=== PATIENT | male | born 1980 | race Caucasian/White ===

== ENCOUNTER 2019-09-27 11:29 | Emergency (ER) | payer SELFPAY ==
[~2019-09-27] VITALS: Ht 160 cm; Wt 90.7 kg
[2019-09-27 11:47] VITALS: BP_SYST 124
--- NOTE | 2019-09-27 12:08 | NUR ---
Patient to ER bed 07 to gown for evaluation. Side rails up.
--- NOTE | 2019-09-27 12:09 | NUR ---
Patient arrived via POV, AAOx4, and ambulatory with steady gait. Stated c/c of cough, congestion, nose bleed, and body aches. Patient having a non productive dry cough at this time. Congestion noted to bilateral cheek bones. Afebrile at time of triage. No nosebleed noted for today. Will continue to follow up and monitor.
--- NOTE | 2019-09-27 12:11 | NUR ---
ER at bedside examining patient.
--- NOTE | 2019-09-27 12:57 | NUR ---
Spoke with lab, critical value called. Patient positive for Influenza B. MD Sun made aware.
--- NOTE | 2019-09-27 13:38 | NUR ---
Dr Sun at bedside explaining results to patient
[2019-09-27 13:55] VITALS: BP_SYST 122
--- NOTE | 2019-09-27 13:55 | NUR ---
Patient given written and verbal discharge instructions and verbalizes understanding. ER MD discussed with patient the results and treatment provided. Patient in stable condition. ID arm band removed. Rx of Robitussin, Tylenol, Keflex ,Sudafed given. Patient educated on pain management and to follow up with PMD. Pain Scale 2/10 tolerable for pt . Opportunity for questions provided and answered. Medication side effect fact sheet provided.
== END 2019-09-27 13:55 | disposition home or self-care (01) ==
LOC: SED 11:29
DX: J10.1 Influenza due to other identified influenza virus with other respiratory manifestations (principal); J32.9 Chronic sinusitis, unspecified
CPT/HCPCS: 36415; 86710; 99283

== ENCOUNTER 2021-06-22 06:33 | Emergency (ER) | payer MEDICAID, SELFPAY ==
[~2021-06-22] VITALS: Ht 160 cm; Wt 90.7 kg
[2021-06-22 06:45] VITALS: BP_SYST 118
--- NOTE | 2021-06-22 06:45 | NUR ---
Patient to ER TENT 2 to gown for evaluation. Side rails up.
--- NOTE | 2021-06-22 06:55 | NUR ---
PATIENT AAOX4 AND AMBULATORY FROM HOME C/O FLU LIKE SYMPTOMS OF COUGH, RUNNY NOSE X1 DAY. PER PATIENT HAD FEVER OF 101 YESTERDAY @9PM. VSS.
--- NOTE | 2021-06-22 07:00 | NUR ---
DR. GRIFFITH AT BEDSIDE FOR EVALUATION.
[2021-06-22 07:15] VITALS: BP_SYST 121
--- NOTE | 2021-06-22 07:15 | NUR ---
Patient given written and verbal discharge instructions and verbalizes understanding. ER MD discussed with patient the results and treatment provided. Patient in stable condition. ID arm band removed. Patient educated on pain management and to follow up with PMD. Pain Scale 0/10 Opportunity for questions provided and answered.
== END 2021-06-22 07:15 | disposition home or self-care (01) ==
LOC: SED 06:33
DX: R05 Cough (principal); Z20.822 Contact with and (suspected) exposure to COVID-19
CPT/HCPCS: 99283; C9803; U0003

== ENCOUNTER 2021-08-10 17:15 | Emergency (ER) | payer MEDICAID, SELFPAY ==
[~2021-08-10] VITALS: Ht 170.2 cm; Wt 90.7 kg
[2021-08-10 17:15] VITALS: BP_SYST 120
--- NOTE | 2021-08-10 17:15 | NUR ---
BROUGHT INTO TRIAGE TENT AND TRIAGED. AWAITING ER BED
--- NOTE | 2021-08-10 17:25 | NUR ---
PT STATES HE TOOK AN AT HOME TEST FOR COVID WITH A POSITIVE RESULT. PT HERE WITH HIS DAUGHTER TO GET COVID TESTING. PT STATES CONGESTION, COUGH, FEVERS FOR LAST 2 DAYS
--- NOTE | 2021-08-10 17:45 | NUR ---
COVID SPECIMEN OBTAINED AND SENT TO LAB
--- NOTE | 2021-08-10 20:10 | NUR ---
ER examining patient in the tent.
[2021-08-10 20:15] VITALS: BP_SYST 125
--- NOTE | 2021-08-10 20:15 | NUR ---
Patient given written and verbal discharge instructions and verbalizes understanding. ER MD discussed with patient the results and treatment provided. Patient in stable condition. ID arm band removed. no Rx of given. Patient educated on pain management and to follow up with PMD. Pain Scale 0/10. Opportunity for questions provided and answered. Medication side effect fact sheet provided.
== END 2021-08-10 20:15 | disposition home or self-care (01) ==
LOC: SED 17:15
DX: U07.1 COVID-19 (principal)
CPT/HCPCS: 36415; 99283

== ENCOUNTER 2021-11-28 11:29 | Emergency (ER) | payer MEDICAID, SELFPAY ==
[~2021-11-28] VITALS: Ht 152.4 cm; Wt 90.7 kg
[2021-11-28 11:34] VITALS: BP_SYST 124
[2021-11-28] MEDS ORDERED: NAPR-1172 PO (12:54)
[2021-11-28 13:01] VITALS: BP_SYST 124
== END 2021-11-28 13:01 | disposition home or self-care (01) ==
LOC: SED 11:29
DX: S93.602A Unspecified sprain of left foot, initial encounter (principal); X50.9XXA Other and unspecified overexertion or strenuous movements or postures, initial encounter; Y93.89 Activity, other specified; Y92.89 Other specified places as the place of occurrence of the external cause; Y99.8 Other external cause status
CPT/HCPCS: 99283

== ENCOUNTER 2022-12-11 12:04 | Emergency (ER) | payer MEDICAID ==
[~2022-12-11] VITALS: Ht 162.6 cm; Wt 81.6 kg
[~2022-12-11 12:04] MED LIST: NAPR-1172 PO
--- NOTE | 2022-12-11 12:30 | NUR ---
CALL NO ANSWER
[2022-12-11 12:45] VITALS: BP_SYST 139
--- NOTE | 2022-12-11 12:45 | NUR ---
ER DR. DALEY EXAMINING PT IN TRIAGE
--- NOTE | 2022-12-11 12:50 | NUR ---
Placed in room 04 . Placed on threat monitoring analyst, blood pressure machine and pulse oximeter. To gown for exam. Side rails up.
[2022-12-11] MEDS ORDERED: NACL 0.9% 1,000 ML IV ONE (13:15)
[2022-12-11] MEDS ORDERED: KETOROLAC TROMETHAMINE 30 MG VIAL IVP ONE (13:15)
[2022-12-11 13:16] LABS: BILIRUBIN,URINE NEGATIVE (NEGATIVE); BLOOD, URINE 1+ (NEGATIVE); CLARITY/URINE CLEAR (CLEAR); COLOR,URINE YELLOW (YELLOW); GLUCOSE,URINE NEGATIVE (NEGATIVE); KETONES,URINE NEGATIVE (NEGATIVE); LEUKOCYTE ESTERASE ,URINE NEGATIVE (NEGATIVE); NITRITE, URINE NEGATIVE (NEGATIVE); PROTEIN URINE NEGATIVE (NEGATIVE); UROBILINOGEN,URINE 0.2 (0.2-1.0)
[2022-12-11 13:24] LABS: BASOPHILS % (AUTO) 0.3 % (0.0-2.0); EOSINOPHILS # (AUTO) 0.1 K/uL (0.0-0.4); EOSINOPHILS % (AUTO) 0.9 % (0.0-4.0); HEMATOCRIT 42.9 % (36-54); HEMOGLOBIN 14.1 g/dL (14.0-18.0); LYMPHOCYTES # (AUTO) 3.4 K/uL (1.0-5.5); LYMPHOCYTES % (AUTO) 40.6 % (20.5-51.5); MEAN CORPUSCULAR HEMOGLOBIN 26 pg (27-31); MEAN CORPUSCULAR HGB CONC 33 % (32-36); MEAN CORPUSCULAR VOLUME 78 fL (79.0-98.0); MONOCYTES # (AUTO) 0.6 K/uL (0.0-1.0); MONOCYTES % (AUTO) 6.6 % (1.7-9.3); NEUTROPHILS # (AUTO) 4.3 K/uL (1.8-7.7); NEUTROPHILS % (AUTO) 51.6 % (40.0-70.0); PLATELET COUNT (AUTO) 294 K/uL (130-430); RED BLOOD CELL COUNT(AUTO) 5.49 MIL/uL (4.2-6.2); RED CELL DISTRIBUTION WIDTH 14.3 % (9.0-15.0); WHITE BLOOD COUNT (AUTO) 8.4 K/uL (4.8-10.8)
--- NOTE | 2022-12-11 13:25 | NUR ---
Medicated per MD orders. IVF infusing with no s/s of infiltration at this time. Will cont to monitor
--- NOTE | 2022-12-11 13:27 | NUR ---
Pt to radiology ambulates with steady gait.
[2022-12-11 13:38] LABS: BACTERIA,URINE None Seen /HPF (None Seen); WBC,URINE NONE SEEN /HPF (0-3)
--- NOTE | 2022-12-11 13:40 | NUR ---
This is a 42-year-old male with a history of hyperlipidemia and kidney stones who presents to the ED for 1 day history of severe nonradiating bilateral flank pain. No nausea, vomiting, fever, chills, diarrhea, or urinary symptoms. Patient has no history of abdominal surgeries.
[2022-12-11 13:42] LABS: CREATININE 0.9 mg/dL (0.55-1.30)
[2022-12-11 13:47] LABS: ALBUMIN 3.6 g/dL (3.4-4.8); TOTAL BILIRUBIN 0.3 mg/dL (0.0-1.0)
[2022-12-11] MEDS ORDERED: NAPR-690 PO (14:37)
--- NOTE | 2022-12-11 14:51 | NUR ---
Patient given written and verbal discharge instructions and verbalizes understanding. ER MD discussed with patient the results and treatment provided. Patient in stable condition. ID arm band removed. Rx of enNaprox given. Patient educated on pain management and to follow up with PMD. Opportunity for questions provided and answered. Medication side effect fact sheet provided.
[2022-12-11 14:53] VITALS: BP_SYST 139
== END 2022-12-11 14:51 | disposition home or self-care (01) ==
LOC: SED 12:04
DX: S33.5XXA Sprain of ligaments of lumbar spine, initial encounter (principal); E78.5 Hyperlipidemia, unspecified; Z79.899 Other long term (current) drug therapy; X58.XXXA Exposure to other specified factors, initial encounter; Y93.89 Activity, other specified; Y92.89 Other specified places as the place of occurrence of the external cause; Y99.8 Other external cause status
CPT/HCPCS: 99284; 74176; 80053; 81000; 85025; 36415; 76376; J1885

== ENCOUNTER 2023-02-04 14:13 | Emergency (ER) | payer MEDICAID ==
[~2023-02-04 14:13] MED LIST changes: +NAPR-690 PO
[2023-02-04] MEDS ORDERED: OFLO5DRO6 EACH EYE (15:00)
[2023-02-04 15:38] VITALS: BP_SYST 135
== END 2023-02-04 15:05 | disposition home or self-care (01) ==
LOC: SED 14:13
DX: H10.023 Other mucopurulent conjunctivitis, bilateral (principal); H10.89 Other conjunctivitis; E78.5 Hyperlipidemia, unspecified; Z79.899 Other long term (current) drug therapy
CPT/HCPCS: 99282